=== PATIENT | male | born 1990 | race Caucasian/White ===

== ENCOUNTER → 2017-01-22 | Outpatient (CLI) | payer OTHER | LOC: EMI 01-09 09:00 | DX: G35 Multiple sclerosis (principal); R90.89 Other abnormal findings on diagnostic imaging of central nervous system; M47.892 Other spondylosis, cervical region | CPT/HCPCS: 70553; 72156; 72157; A9577; J7050 ==

== ENCOUNTER → 2020-10-18 | Outpatient (CLI) | payer MEDICARE, OTHER ==
[~2020-10-18] VITALS: Ht 172.7 cm; Wt 75.7 kg
== END ==
LOC: OPSV 09:56
DX: G35 Multiple sclerosis (principal); H47.20 Unspecified optic atrophy; H53.2 Diplopia; H53.452 Other localized visual field defect, left eye; H49.22 Sixth [abducent] nerve palsy, left eye; R20.2 Paresthesia of skin; R39.15 Urgency of urination; F17.200 Nicotine dependence, unspecified, uncomplicated; Z88.8 Allergy status to other drugs, medicaments and biological substances
CPT/HCPCS: 96365; 96366; 96375; J2350; J2930; J7030

== ENCOUNTER 2021-03-07 09:01 | Emergency (ER) | payer MEDICARE, OTHER ==
[2021-03-07] MEDS ORDERED: NAPROSYN500 MG PO (11:11)
== END 2021-03-07 11:35 | disposition home or self-care (01) ==
LOC: ER1 09:01
DX: M25.552 Pain in left hip (principal)
CPT/HCPCS: 73502; 96372; 99283; J1885

== ENCOUNTER → 2021-04-24 | Outpatient (CLI) | payer MEDICARE, OTHER ==
[~2021-04-24] VITALS: Ht 172.7 cm; Wt 70.3 kg
[~2021-04-24] MED LIST: NAPROSYN500 MG PO
== END ==
LOC: OPSV 09:00
DX: G35 Multiple sclerosis (principal); H47.20 Unspecified optic atrophy; H53.2 Diplopia; H53.452 Other localized visual field defect, left eye; H49.22 Sixth [abducent] nerve palsy, left eye; R20.2 Paresthesia of skin; R39.15 Urgency of urination
CPT/HCPCS: 96375; 96413; 96415; J2350; J2930; J7030

== ENCOUNTER 2021-06-14 15:46 | Emergency (ER) | payer MEDICARE, OTHER | END 2021-06-14 18:40 | disposition home or self-care (01) | LOC: ER1 15:46 | DX: G35 Multiple sclerosis (principal); F17.210 Nicotine dependence, cigarettes, uncomplicated | CPT/HCPCS: 96374; 99283; J2930; J7070 ==

== ENCOUNTER → 2021-06-17 | Outpatient (CLI) | payer MEDICARE, OTHER ==
[~2021-06-17] VITALS: Ht 172.7 cm; Wt 70.3 kg
== END ==
LOC: OPSV 14:27
DX: G35 Multiple sclerosis (principal)
CPT/HCPCS: 96365; J2930; J7070

== ENCOUNTER → 2021-06-18 | Outpatient (CLI) | payer MEDICARE, OTHER ==
[~2021-06-18] VITALS: Ht 172.7 cm; Wt 70.3 kg
== END ==
LOC: OPSV 13:32
DX: G35 Multiple sclerosis (principal)
CPT/HCPCS: 96365; J2930; J7070